=== PATIENT | female | born 1960 | race Caucasian/White ===

== ENCOUNTER 2019-04-20 12:02 | Day surgery (SDC) | payer OTHER ==
[~2019-04-20] VITALS: Ht 160 cm; Wt 76.8 kg
[~2019-04-20 12:02] MED LIST: ASPI-556 PO; ATOR10TA84 PO; CLOP75TA3 PO; ESCI20TA PO; HYDR-1475 PO; LOSA25TA71 PO; OMEP20 PO; RANO500T3 PO; SODIUM CHLORIDE 0.9% 1,000 ML IV ONE; SODIUM CHLORIDE 0.9% 1,000 ML ONE
[2019-04-20 12:41] LABS: EOSINOPHILS % (AUTO) 1.3 % (1.0-6.0); HEMATOCRIT 36.2 % (36-46); HEMOGLOBIN 12.5 g/dL (12.0-16.0); LYMPHOCYTES % (AUTO) 42.3 % (22.0-44.0); MEAN CORPUSCULAR HGB CONC 34.5 G/dL (31.0-37.0); MEAN CORPUSCULAR VOLUME 84 fL (80-100); MONOCYTES # (AUTO) 0.3 K/uL (0.1-1.0); MONOCYTES % (AUTO) 7.1 % (2.0-9.0); NEUTROPHILS # (AUTO) 2.2 K/uL (1.8-7.7); NEUTROPHILS % (AUTO) 48.3 % (40.0-70.0); PLATELET COUNT (AUTO) 212 K/uL (150-450); RED CELL DISTRIBUTION WIDTH 14.2 % (11.5-14.5)
[2019-04-20 12:55] LABS: ANION GAP 6 mmol/L (8-16); CALCIUM, TOTAL 9.6 mg/dL (8.8-10.5); CARBON DIOXIDE 30 mmol/L (22-29); CHLORIDE 101 mmol/L (98-107); CREATININE 0.76 mg/dL (0.60-1.30); GLOMERULAR FILTR. RATE CALC > 60 mL/min (>60); GLUCOSE,RANDOM 92 mg/dL (70-110); INR 1.1 (0.9-1.1); POTASSIUM 4.5 mmol/L (3.5-5.1); PROTHROMBIN TIME 10.8 SEC (9.4-11.6); SODIUM SERUM 137 mmol/L (136-145); UREA NITROGEN, BLOOD 11 mg/dL (7-18)
[2019-04-20 13:01] LABS: ALANINE AMINOTRANSFERASE 28 U/L (12-78); ALBUMIN 4.2 g/dL (3.4-5.0); ALKALINE PHOSPHATASE 70 U/L (46-116); ASPARTATE AMINOTRANSFERASE 29 U/L (15-37); BILIRUBIN,TOTAL 1.1 mg/dL (0.1-1.0); TOTAL PROTEIN, SERUM 7.4 g/dL (6.4-8.2)
[2019-04-20] MEDS ORDERED: IOHEXOL 300 MG/ML 150 ML VIAL ONE (13:24)
[2019-04-20] MEDS ORDERED: SODIUM BICARBONATE 50 MEQ/50 ML VIAL ONE (13:24)
[2019-04-20] MEDS ORDERED: HEPARIN SODIUM 1000 UNITS/NS 1,000 ML ONE (13:24)
[2019-04-20] MEDS ORDERED: LIDOCAINE/PF 1% 30 ML VIAL ONE (13:24)
[2019-04-20 13:51] VITALS: BP 148/76
[2019-04-20] MEDS ORDERED: IOHEXOL 300 MG/ML 50 ML VIAL ONE (13:57)
[2019-04-20] MEDS ORDERED: FentaNYL CITRATE-PF 100 MCG/2 ML VIAL ONE (13:57)
[2019-04-20] MEDS ORDERED: MIDAZOLAM HCL 2 MG/2 ML VIAL ONE (13:58)
[2019-04-20] MEDS ORDERED: HEPARIN SODIUM 1000 UNITS/NS 1,000 ML IARTER ONE (14:11)
[2019-04-20] MEDS ORDERED: LIDOCAINE 1% 30 ML/SOD BICARB 8.4% 4 ML SQ ONE (14:15)
[2019-04-20] MEDS ORDERED: IOHEXOL 300 MG/ML 150 ML VIAL IARTER ONE (14:15)
[2019-04-20] MEDS ORDERED: MIDAZOLAM HCL 2 MG/2 ML VIAL IVP ONE ×2 (14:15)
[2019-04-20] MEDS ORDERED: FentaNYL CITRATE-PF 100 MCG/2 ML VIAL IVP ONE ×2 (14:15)
[2019-04-20 14:26] VITALS: BP 124/70
[2019-04-20] MEDS ORDERED: SODIUM CHLORIDE 0.9% 1,000 ML IV SCH (14:45)
== END 2019-04-20 18:00 | disposition home or self-care (01) ==
LOC: CATHLAB 12:02
PROVIDERS: ATTEND Specialist
DX: R07.9 Chest pain, unspecified (principal); I25.118 Atherosclerotic heart disease of native coronary artery with other forms of angina pectoris; I10 Essential (primary) hypertension; E78.2 Mixed hyperlipidemia; F32.9 Major depressive disorder, single episode, unspecified; F41.9 Anxiety disorder, unspecified; K21.9 Gastro-esophageal reflux disease without esophagitis; Z98.890 Other specified postprocedural states; Z79.899 Other long term (current) drug therapy
CPT/HCPCS: 36415; 80053; 83036; 85025; 85610; 85730; 93005; 93458; J1644; J2250; J3010; J3490 ×2; J7030; Q9967 ×2

== ENCOUNTER 2020-04-27 11:39 | Observation (INO) | payer OTHER ==
[~2020-04-27 11:39] MED LIST changes: -CLOP75TA3 PO; +CLOP75TA60 PO; -ESCI20TA PO; +ESCI20TA87 PO; -HYDR-1475 PO; +HYDR25TA2 PO; +LOSA25TA21 PO; -LOSA25TA71 PO; -SODIUM CHLORIDE 0.9% 1,000 ML IV ONE; -SODIUM CHLORIDE 0.9% 1,000 ML ONE
[2020-04-27] MEDS ORDERED: RINGERS SOLUTION,LACTATED 1,000 ML IV ONE ×3 (11:40→14:58)
[2020-04-27] MEDS ORDERED: ROCURONIUM BROMIDE 10 MG/ML 5 ML VIAL IVP ONE (11:41)
[2020-04-27] MEDS ORDERED: KETOROLAC TROMETHAMINE 60 MG/2 ML VIAL IM ONE (11:41)
[2020-04-27] MEDS ORDERED: PHENYLEPHRINE HCL 10 MG/ML VIAL IVP ONE (11:41)
[2020-04-27] MEDS ORDERED: DEXAMETHASONE SOD PHOS 4 MG/ML VIAL IVP ONE (11:41)
[2020-04-27] MEDS ORDERED: LIDOCAINE/PF 2% 5 ML VIAL IM ONE (11:41)
[2020-04-27] MEDS ORDERED: NEOSTIGMINE METHYLSULFATE 1 MG/ML 10 ML VIAL IVP ONE (11:41)
[2020-04-27] MEDS ORDERED: GLYCOPYRROLATE 0.2 MG/ML VIAL IM ONE (11:41)
[2020-04-27] MEDS ORDERED: ONDANSETRON HCL 4 MG/2 ML VIAL IVP ONE (11:41)
[2020-04-27] MEDS ORDERED: EPINEPHrine 1:1,000 [1 MG/ML] AMP ONE (11:50)
[2020-04-27] MEDS ORDERED: SODIUM CL IRRIG SOLN BAG 6,000 ML IRRIG ONE (11:51)
[2020-04-27] MEDS ORDERED: BUPIVACAINE HCL 0.5% 50 ML VIAL ONE (11:51)
[2020-04-27] MEDS ORDERED: LIDOCAINE/PF 1% 30 ML VIAL ONE (11:51)
[2020-04-27] MEDS ORDERED: MEPERIDINE-PF 25 MG/ML VIAL IVP PRN (15:15)
[2020-04-27] MEDS ORDERED: HYDROmorphone 2 MG/ML VIAL IVP PRN (15:15)
[2020-04-27] MEDS ORDERED: FentaNYL CITRATE PF 100 MCG/2 ML VIAL IVP PRN (15:15)
[2020-04-27] MEDS ORDERED: ACETAMINOPHEN 1000 MG/ISO-OSM 100 ML IV ONE (16:25)
[2020-04-27] MEDS ORDERED: HYDROmorphone 2 MG/ML VIAL ONE (16:25)
[2020-04-27] MEDS: ACETAMINOPHEN 1000 MG/ISO-OSM 100 ML IV SCH ×2 (16:30→23:00)
[2020-04-27] MEDS ORDERED: HYDROmorphone 2 MG/ML VIAL IVP STA (16:33)
[2020-04-27] MEDS ORDERED: ONDANSETRON HCL 4 MG/2 ML VIAL IVP PRN (16:45)
[2020-04-27] MEDS ORDERED: CYCLOBENZAPRINE HCL 10 MG TABLET PO PRN (16:45)
[2020-04-27] MEDS ORDERED: ZOLPIDEM TARTRATE 5 MG TABLET PO PRN (16:45)
[2020-04-27 17:30] VITALS: BP 129/84
[2020-04-27] MEDS: HYDROmorphone 2 MG/ML VIAL IVP PRN (18:21)
[2020-04-27] MEDS: OXYGEN THERAPY IH SCH (19:49)
[2020-04-27] MEDS ORDERED: OXYGEN THERAPY IH SCH (20:00)
[2020-04-27 21:21] VITALS: BP 106/67
[2020-04-28 00:33] VITALS: BP 111/66
[2020-04-28] MEDS: HYDROmorphone 2 MG/ML VIAL IVP PRN (01:56)
[2020-04-28] MEDS: ACETAMINOPHEN 1000 MG/ISO-OSM 100 ML IV SCH ×2 (04:59→11:09)
[2020-04-28 05:17] VITALS: BP 108/56
[2020-04-28] MEDS: OXYGEN THERAPY IH SCH (08:00)
[2020-04-28 08:18] VITALS: BP 108/71
[2020-04-28] MEDS: OxyCODONE HCL 5 MG IR TABLET PO PRN ×2 (08:44→16:20)
[2020-04-28] MEDS ORDERED: ENOXAPARIN SODIUM 40 MG/0.4 ML PF SYRINGE SQ SCH (09:00)
[2020-04-28 15:34] VITALS: BP 110/64
[2020-04-28] MEDS ORDERED: DOCU-275 PO (16:45)
[2020-04-28] MEDS ORDERED: ONDA-104 PO (16:46)
[2020-04-28] MEDS ORDERED: OXYC5 PO ×2 (16:47→16:48)
[2020-04-28] MEDS ORDERED: OxyCODONE HCL/ACETAMINOPHEN 10-325 MG TABLET PO PRN (23:00)
== END 2020-04-28 18:35 | disposition home or self-care (01) ==
LOC: SURGERY 11:39 → 6N 11:40 → INTOOBSV 11:40
PROVIDERS: ADMIT Orthopaedic Surgery; ATTEND Orthopaedic Surgery
DX: M16.11 Unilateral primary osteoarthritis, right hip (principal); S73.191A Other sprain of right hip, initial encounter; M24.851 Other specific joint derangements of right hip, not elsewhere classified; Z79.82 Long term (current) use of aspirin; I25.10 Atherosclerotic heart disease of native coronary artery without angina pectoris; I10 Essential (primary) hypertension; K21.9 Gastro-esophageal reflux disease without esophagitis; X58.XXXA Exposure to other specified factors, initial encounter; Y93.89 Activity, other specified; Y92.89 Other specified places as the place of occurrence of the external cause
CPT/HCPCS: 20610; 29520; 29863; 29915; 96372; 96374; 96375 ×2; 96376; 97116; 97161; 97530; 99219 ×2; A9575; J0131; J0171; J0690; J1100; J1170 ×2; J1650; J1885; J2370; J2405 ×2; J3490 ×5; J7120; Z7506; Z7508; Z7610 ×2